=== PATIENT | male | born 1965 | race Caucasian/White ===

== ENCOUNTER → 2024-03-30 15:34 | Outpatient (REF) | payer BC, SELFPAY | LOC: RCS 15:34 | PROVIDERS: ATTENDING PHYSICIAN Nurse Practitioner; FAMILY PHYSICIAN Nurse Practitioner Family | DX: I10 Essential (primary) hypertension (principal) | CPT/HCPCS: 93306 ==

== ENCOUNTER 2025-02-03 22:30 | Emergency (ER) | payer BC, SELFPAY ==
[2025-02-03 22:31] VITALS: BP 136/76
--- NOTE | 2025-02-04 01:36 | ED.GENMED ---
History of Present Illness
General
Chief Complaint: DVT/Possible Blood Clot
Source: patient and spouse
Time Seen by Provider: 02/04/25 01:21
History of Present Illness
History of Present Illness:
This patient is a 60-year-old male presents emergency department with complaints of tenderness and a red linear streak at the medial aspect of the left calf. He first noticed this today. Of note, the patient has a history of leg swelling
bilaterally thought to be related to his medications. This is unchanged. He denies fever, chills, numbness, tingling, weakness, abdominal pain, back pain. Patient is very active and in fact was hunting this morning. He denies recent
immobilization or trauma. He denies chest pain or shortness of breath.
Past History
Past History
ED Past Medical History: HTN and Hypercholesterolemia
Social History
Tobacco: Non-smoker
Alcohol: Occasional
Drug: None
Personal:
Living: with family
Phy Exam
Physical Exam
Physical Exam:
GENERAL: Alert , in no apparent distress
EYE: pupils equal and reactive
NECK: Supple, no significant adenopathy.
ENT: o/p clr, mmm.
CARDIAC: Regular rate and rhythm .
LUNGS: Clear breath sounds bilaterally, no acute respiratory distress, no wheezes/rales/rhonchi
ABDOMEN: Soft, without focal tenderness, no r/g, no cvat
NEUROLOGICAL: Alert and oriented, no focal neuro deficits
SKIN: Warm and dry, skin intact. There is a area of linear erythema on the medial aspect of the left calf with mild tenderness to palpation, no fluctuance, no induration. Negative Homans, full range of motion of lower extremity without hesitation
or pain. 2+ DP/PT pulses, sensation intact, motor 5 out of 5.
MUSCULOSKELETAL: No edema, well perfused.
PSYCH: Normal and appropriate interaction.
Course
Orders/Labs/Results
Orders:
Orders
02/04/25 22:33
US Periph Venous LOWER Ext LT Urgent
Reason For Exam: calf tenderness
Vital Signs
Initial and Last Documented VS:
Initial Vital Signs
Temp Pulse Resp BP Pulse Ox
98.2 F 67 16 136/76 98
02/03/25 22:31 02/03/25 22:31 02/03/25 22:31 02/03/25 22:31 02/03/25 22:31
Last Documented Vital Signs
Temp Pulse Resp BP Pulse Ox
98.2 F 67 16 136/76 98
02/03/25 22:31 02/03/25 22:31 02/03/25 22:31 02/03/25 22:31 02/03/25 22:31
*Pulse Oximetry
SaO2: 98
Oxygen Mode of Delivery: Room air
Update Note
Update Note:
Patient presents to the Emergency Department with ___left leg pain and redness
Number and Complexity of Problems Addressed at the Encounter
� Chronic conditions affecting care:
� Acute Exacerbation and/or Progression of Chronic Illness:
� Differential Diagnosis includes: But not limited to DVT, superficial thrombophlebitis, cellulitis, abscess, Khan's cyst rupture, etc. etc.
Amount and/or Complexity of Data to be Reviewed and Analyzed
� I performed an independent evaluation of and my interpretation is:
EKG:
CT:
Xrays:
Laboratory Studies:
Other: Ultrasound there is an occluded superficial thrombus within the left greater saphenous vein from the proximal distal portion of the left calf in the area of redness. No evidence of DVT in the left lower extremity veins.
� Review of other/old records reveals:
� Clinical information was obtained by an independent historian: who is bedside and is a nurse
� Prescriptions/Medications Considered but not given:
� Further testing considered but not performed:
Risk of Complications and/or Morbidity or Mortality of Patient Management
� Social determinants of health affecting care:
� Discussion with other providers (PCP, Hospitalists, Consultants, etc):
� Escalation of care including admission/observation vs risk of discharge considered: Physical exam extremely suspicious for superficial thrombophlebitis and ultrasound confirms this. Discussed with patient treatment including
elevation, warm compresses, nonsteroidals, and importance of close follow-up and reasons to return to the ER
ED Attending Note
-
Portions of this chart may have been created with voice recognition software.� Occasional wrong word or��sound alike� substitutions may have occurred due to the inherent limitations of voice recognition software.
Discharge Plan
Departure
Patient Disposition: Home (Routine Discharge)
Date of Disposition: 02/04/25
Time of Disposition: 01:38
Patient with high blood pressure during this ER visit?: Yes
Condition: Good
Discharge Problem:
Superficial thrombophlebitis
Instructions: Superficial vein phlebitis and thrombosis, BLOOD PRESSURE
Activity Restrictions/Additional Instructions:
IF YOU DEVELOP NUMBNESS, WEAKNESS, INCREASING/NEW PAIN, FEVER, CHEST PAIN, TROUBLE BREATHING, GET WORSE, DO NOT GET BETTER, OR OTHER WORRISOME SIGNS, GO TO THE ER IMMEDIATELY!
Discharge Date and Time
Print Language: MALTESE
[2025-02-04 01:55] VITALS: BP 114/68
== END 2025-02-04 02:10 | disposition home or self-care (01) ==
LOC: EMR 22:30
PROVIDERS: EMERGENCY PHYSICIAN Emergency Medicine; FAMILY PHYSICIAN Nurse Practitioner Family
DX: I82.4Z2 Acute embolism and thrombosis of unspecified deep veins of left distal lower extremity (principal); R22.43 Localized swelling, mass and lump, lower limb, bilateral; I10 Essential (primary) hypertension; E78.00 Pure hypercholesterolemia, unspecified
CPT/HCPCS: 99284; 93971